=== PATIENT | female | born 1995 | race American Indian/Alaskan Native ===

== ENCOUNTER 2018-04-25 01:46 | Emergency (ER) | payer SELFPAY ==
[2018-04-25] MEDS ORDERED: BOOSTRIX IM ONE (02:39)
[2018-04-25] MEDS ORDERED: ATIVAN IM PRN (02:39)
[2018-04-25] MEDS ORDERED: HALDOL IM PRN (02:39)
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
[2018-04-25 02:59] LABS: Bilirubin,Urine NEG (Negative); Blood,Urine NEG (Negative); Color,Urine Straw (Yellow); HCG Qualitative,Urine Negative (Negative); Protein,Urine <15 mg/dL mg/dL (Negative); RBC,Urine < 1.0 /HPF (0.0-6.0); Urobilinogen,Urine < 2.0 mg/dL (<2.0)
[2018-04-25 03:20] LABS: Hematocrit 33.1 % (30.3-42.9); Hemoglobin 10.6 gm/dl (10.1-14.3); Mean Corpuscular HGB Conc 32 % (30-34); Mean Corpuscular Volume 79 fl (79-97); Platelet Count 337 K/mm3 (140-440); Red Blood Count 4.22 M/mm3 (3.65-5.03); Red Cell Distribution Width 15.3 % (13.2-15.2)
[2018-04-25 03:37] LABS: Mean Corpuscular Hemoglobin 25 pg (28-32)
[2018-04-25 03:49] LABS: BUN/Creatinine Ratio 11; Blood Urea Nitrogen 8 mg/dL (7-17); Calcium 9.3 mg/dL (8.4-10.2); Hemolysis Index 4
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
[2018-04-25 05:26] VITALS: BP 110/76
== END 2018-04-25 05:30 ==
LOC: ED 01:46
DX: F10.129 Alcohol abuse with intoxication, unspecified (principal); V49.49XA Driver injured in collision with other motor vehicles in traffic accident, initial encounter; Z79.899 Other long term (current) drug therapy; Y93.89 Activity, other specified; Y92.89 Other specified places as the place of occurrence of the external cause; Y99.8 Other external cause status
CPT/HCPCS: 36415; 70450; 71045; 72125; 72170; 73060; 73120; 73560; 73620; 80048; 81001; 81025; 82550; 84702; 85027; 90471; 90715; 96372; 99284; G0480; J1630; J2060; 80320